=== PATIENT | male | born 1935 | race Caucasian/White ===

== ENCOUNTER → 2017-02-28 | Outpatient (CLI) | payer MEDICARE ==
[~2017-02-28] MED LIST: ALBUTEROL17 GM INH; AMLODIPINE; ASPIRIN325 M1 PO; ATORVASTATIN; BABY ASPIRIN; BACLOFEN10 MG PO; COLACE PO; ENDOCET; FAMOTIDINE; FERROUS SULFATE; FOLIC ACID1 MG PO; HCTZ PO; HYDRALAZINE; HYDROCHLOROTHIA25 MG PO; HYDROCHLOROTHIAZIDE; HYDROCODON-ACE1 EAC7 PO; HYDROCORTISON28.4 G3 TP; KEFLEX PO; LIPITOR80 MG PO; LISINOPRIL PO; LORTAB 10-5001 EACH PO; MOBIC PO; MUCINEX; PLAVIX; PREDNISONE10 MG PO; PRINIVIL40 MG PO; TESTOSTERONE PO; VICODIN 5/500 T1 TAB PO; VITAMIN B12-FO1 EACH PO; ZESTORETIC 20/21 TAB PO
--- NOTE | ~2017-02-28 | CR63 ---
[facility] A Service [facility] RADIOLOGY TEXT RESULTS PATIENT: DIANA MOTT SR LOCATION: [facility] : 37 UNIT #: [id number] AGE: [address]: BRIDGET VALENTINE APRN SEX: M ORDER DR: [id number] [address] [address] [id number] O MR#: [id number] Acc #: [id number] NAME: DIANA MOTT : 1935 SEX: M STUDY DATE/TIME: 02/28/2017 11:45 UNIT: [facility] ROOM: STUDY DESCRIPTION: CR Chest 2 View Attending Physician: Bridget Valentine A.P.R.N. Referring Physician: Bridget Valentine A.P.R.N. Ordering Physician: Staff Doctor Not On Primary Care Physician: Sinai Cruz M.D. MEDICAL IMAGING REPORT This report is preliminary unless electronic signature is present. EXAM Chest x-ray HISTORY Cough with rales over the past week. COMPARISON Comparison from 05/25/2015. TECHNIQUE 2 views of the chest were obtained. FINDINGS Emphysema is again noted extensively throughout both lungs. There is fibrotic change seen at the right apex. There is a small new infiltrate in the lingula best seen on the lateral view. Given patient's history, this is suspicious for pneumonia. No pleural fluid is seen. Vascular markings are normal. IMPRESSION Severe emphysema. Small new lingular infiltrate best seen on the lateral view. Findings suspicious for pneumonia. Dictated by... Anthony Gayle M.D. THIS IS AN ELECTRONICALLY VERIFIED REPORT Anthony Gayle M.D. at 02/28/2017 6:16 PM RLF/liz [facility] A [facility] RADIOLOGY TEXT RESULTS PATIENT: DIANA MOTT SR LOCATION: [facility] : 37 UNIT #: [id number] AGE: [address]: BRIDGET VALENTINE APRN SEX: M ORDER DR: TD: 02/28/2017 14:33 JOB #: [id number] MEDICAL IMAGING REPORT Page 1 of 1
== END | disposition home or self-care (01) ==
LOC: SRAD 11:23
DX: J43.9 Emphysema, unspecified (principal); R91.8 Other nonspecific abnormal finding of lung field
CPT/HCPCS: 71020

== ENCOUNTER → 2017-02-28 | Outpatient (CLI) | payer MEDICARE ==
[2017-02-28 11:38] LABS: BASOPHIL# 0.1 X10e3 (0-0.3); BASOPHIL% 0.6 % (0-2.5); EOSINOPHIL# 0.3 X10e3 (0-0.7); EOSINOPHIL% 2.2 % (0.0-7.0); HEMOGLOBIN 12.1 gm/dL (13.0-16.0); LYMPHOCYTE# 2.7 X10e3 (1.0-3.5); LYMPHOCYTE% 19.8 % (17.0-45.0); MEAN CELL VOLUME 86.8 FL (83-96); MEAN CORPUSCULAR HEMOGLOBIN 28.4 PG (28-34); MEAN CORPUSCULAR HGB CONC 32.7 g/dL (30-36); MEAN PLATELET VOLUME 6.8 FL (6.5-11.5); MONOCYTE# 0.9 X10e3 (0-1.0); MONOCYTE% 6.6 % (3.0-12.0); NEUTROPHIL# 9.7 X10e3 (1.5-7.1); NEUTROPHIL% 70.8 % (40-75); PLATELET COUNT 544 X10e3 (140-420); RED BLOOD COUNT 4.26 X10e (3.90-5.60); RED CELL DISTRIBUTION WIDTH 16.2 % (11.0-15.5); WHITE BLOOD COUNT 13.7 X10e3 (4.0-10.5)
[2017-02-28 11:48] LABS: DIFF IND NO
[2017-02-28 12:02] LABS: ALBUMIN SERUM 3.5 g/dL (3.5-5.0); BILIRUBIN,TOTAL 0.5 mg/dL (0.2-2.0); BUN/CREATININE RATIO 13.52; CALCIUM SERUM 9.6 mg/dL (8.4-10.2); CREATININE SERUM 1.7 mg/dL (0.6-1.4); GLOM FILT RATE Estimated 37.5 mL/min (>60); PROTEIN TOTAL SERUM 7.8 g/dL (6.0-8.3)
[2017-02-28 12:10] LABS: URINE APPEARANCE CLEAR; URINE BILIRUBIN NEG (NEG); URINE BLOOD NEG (NEG); URINE COLOR YELLOW; URINE GLUCOSE NEG (NORM); URINE KETONE NEG (NEG); URINE LEUKOCYTE ESTERASE TRACE (NEG); URINE NITRATE NEG (NEG); URINE PH 6.5 (5-8); URINE PROTEIN 1+ (NEG); URINE UROBILINOGEN 0.2 MG/DL (NORM)
[2017-02-28 12:11] LABS: MICRO INDICATED? YES
[2017-02-28 12:14] LABS: POTASSIUM 3.1 mmol/L (3.5-5.1)
[2017-02-28 13:14] LABS: URINE BACTERIA NEG (NEG); URINE RBC NEG /[HPF] (0-2); URINE SQUAMOUS EPITHELIAL CELL OCCAS /[HPF]; URINE WBC 0-2 /[HPF] (0-5)
[2017-02-28 13:15] LABS: URINE HYALINE CAST 0-2 /[HPF]; URINE MUCUS PRESENT
[2017-02-28 16:02] LABS: CREATININE,RANDOM URINE 82 mg/dL; TOTAL PROTEIN,RANDOM URINE 34 mg/dl (<10)
== END | disposition home or self-care (01) ==
LOC: SLAB 11:26
PROVIDERS: Internal Medicine Nephrology
DX: N18.2 Chronic kidney disease, stage 2 (mild) (principal)
CPT/HCPCS: 36415; 80053; 81003; 82570; 84156; 85025

== ENCOUNTER → 2017-04-16 | Outpatient (CLI) | payer MEDICARE ==
--- NOTE | ~2017-04-16 | CR63 ---
[facility] A Service [facility] RADIOLOGY TEXT RESULTS PATIENT: DIANA MOTT SR LOCATION: [facility] : 37 UNIT #: [id number] AGE: [address]: BRIAN VALENTINE APRN SEX: M ORDER DR: [id number] [address] [address] [id number] O MR#: [id number] Acc #: [id number] NAME: DIANA MOTT : 1935 SEX: M STUDY DATE/TIME: 04/16/2017 13:43 UNIT: [facility] ROOM: STUDY DESCRIPTION: CR Chest 2 View Ordering Physician: Nawaf Westbrook Primary Care Physician: Sinai Cruz M.D. MEDICAL IMAGING REPORT This report is preliminary unless electronic signature is present. EXAM PA and lateral chest INDICATIONS Cough for 6 weeks. Follow up possible pneumonia seen on lateral view 02/24/2014. COMPARISON STUDIES 02/27/2017. FINDINGS PA and lateral views of the chest were obtained. The lungs are hyperinflated. There is no change in the appearance of the chest with minimal interstitial prominence. On the lateral view behind the lower sternum, there is some linear interstitial prominence. The heart size is normal. IMPRESSION Emphysematous changes. The interstitial prominence extending posteriorly from the lower sternum on the lateral view is unchanged from a few weeks ago and I suspect it probably represents chronic interstitial scarring. No definite pneumonia is visible. Dictated by... Shahzad Yarbrough M.D. THIS IS AN ELECTRONICALLY VERIFIED REPORT Shahzad Yarbrough M.D. at 04/17/2017 1:59 PM FEL/pcl TD: 04/16/2017 16:51 [facility] A Service of [facility] RADIOLOGY TEXT RESULTS PATIENT: DIANA MOTT SR LOCATION: [facility] : 37 UNIT #: [id number] AGE: [address]: MEME,BRIAN L DIRECTOR MANUFACTURING ENGINEERING SEX: M ORDER DR: ANA #: [id number] MEDICAL IMAGING REPORT Page 1 of 1
== END | disposition home or self-care (01) ==
LOC: SRAD 13:32
DX: J18.9 Pneumonia, unspecified organism (principal); J43.9 Emphysema, unspecified
CPT/HCPCS: 71020

== ENCOUNTER → 2017-06-10 | Outpatient (CLI) | payer MEDICARE ==
[2017-06-10 14:14] LABS: BASOPHIL# 0.1 X10e3 (0-0.3); BASOPHIL% 0.6 % (0-2.5); EOSINOPHIL# 0.1 X10e3 (0-0.7); EOSINOPHIL% 0.5 % (0.0-7.0); HEMATOCRIT 31.4 % (38.0-50.0); HEMOGLOBIN 10.1 gm/dL (13.0-16.0); LYMPHOCYTE# 1.5 X10e3 (1.0-3.5); LYMPHOCYTE% 12.5 % (17.0-45.0); MEAN CELL VOLUME 85.1 FL (83-96); MEAN CORPUSCULAR HEMOGLOBIN 27.4 PG (28-34); MEAN CORPUSCULAR HGB CONC 32.2 g/dL (30-36); MEAN PLATELET VOLUME 6.9 FL (6.5-11.5); MONOCYTE# 0.5 X10e3 (0-1.0); MONOCYTE% 4.1 % (3.0-12.0); NEUTROPHIL# 10.1 X10e3 (1.5-7.1); NEUTROPHIL% 82.3 % (40-75); PLATELET COUNT 344 X10e3 (140-420); RED BLOOD COUNT 3.69 X10e (3.90-5.60); RED CELL DISTRIBUTION WIDTH 17.1 % (11.0-15.5); WHITE BLOOD COUNT 12.3 X10e3 (4.0-10.5)
[2017-06-10 14:17] LABS: DIFF IND NO
[2017-06-10 14:33] LABS: ALBUMIN SERUM 3.1 g/dL (3.5-5.0); BILIRUBIN,TOTAL 0.5 mg/dL (0.2-2.0); BUN/CREATININE RATIO 8.75; CALCIUM SERUM 9.2 mg/dL (8.4-10.2); CREATININE SERUM 1.6 mg/dL (0.6-1.4); GLOM FILT RATE Estimated 40.1 mL/min (>60); POTASSIUM 4.2 mmol/L (3.5-5.1); PROTEIN TOTAL SERUM 7.2 g/dL (6.0-8.3)
[2017-06-10 15:46] LABS: URINE APPEARANCE CLEAR; URINE BILIRUBIN NEG (NEG); URINE BLOOD NEG (NEG); URINE COLOR YELLOW; URINE GLUCOSE NEG (NORM); URINE KETONE NEG (NEG); URINE LEUKOCYTE ESTERASE NEG (NEG); URINE NITRATE NEG (NEG); URINE PROTEIN 1+ (NEG); URINE SPECIFIC GRAVITY 1.015 (1.003-1.035); URINE UROBILINOGEN 0.2 MG/DL (NORM)
[2017-06-10 15:49] LABS: MICRO INDICATED? YES
[2017-06-10 15:50] LABS: URINE BACTERIA 1+ (NEG); URINE RBC 0-2 /[HPF] (0-2)
[2017-06-10 15:51] LABS: URINE GRANULAR CAST 0-2 /[HPF]; URINE MUCUS PRESENT; URINE SQUAMOUS EPITHELIAL CELL MANY /[HPF]
[2017-06-10 23:04] LABS: CREATININE,RANDOM URINE 108 mg/dL; TOTAL PROTEIN,RANDOM URINE 63 mg/dl (<10)
== END | disposition home or self-care (01) ==
LOC: SLAB 14:00
PROVIDERS: Internal Medicine Nephrology
DX: N18.2 Chronic kidney disease, stage 2 (mild) (principal)
CPT/HCPCS: 80053; 81003; 82570; 84156; 85025